=== PATIENT | female | born 1930 | race Caucasian/White ===

== ENCOUNTER → 2017-01-18 | Outpatient (CLI) | payer MEDICARE | END | disposition home or self-care (01) | LOC: PCVCIMAG 13:34 | PROVIDERS: ATTEND Internal Medicine | DX: I48.0 Paroxysmal atrial fibrillation (principal); I35.0 Nonrheumatic aortic (valve) stenosis; I12.9 Hypertensive chronic kidney disease with stage 1 through stage 4 chronic kidney disease, or unspecified chronic kidney disease; N18.9 Chronic kidney disease, unspecified; E78.5 Hyperlipidemia, unspecified; E78.00 Pure hypercholesterolemia, unspecified; I34.0 Nonrheumatic mitral (valve) insufficiency; I51.7 Cardiomegaly | CPT/HCPCS: 80061; 93005; 93306; G0463 ==

== ENCOUNTER → 2017-07-21 | Outpatient (CLI) | payer MEDICARE | END | disposition home or self-care (01) | LOC: PCVCCLINIC 14:21 | PROVIDERS: ATTEND Internal Medicine | DX: I48.0 Paroxysmal atrial fibrillation (principal); I35.0 Nonrheumatic aortic (valve) stenosis; E78.2 Mixed hyperlipidemia; E11.22 Type 2 diabetes mellitus with diabetic chronic kidney disease; I12.9 Hypertensive chronic kidney disease with stage 1 through stage 4 chronic kidney disease, or unspecified chronic kidney disease; N18.9 Chronic kidney disease, unspecified; Z79.82 Long term (current) use of aspirin; Z79.899 Other long term (current) drug therapy | CPT/HCPCS: 93005; G0463 ==

== ENCOUNTER → 2018-01-21 | Outpatient (CLI) | payer MEDICARE, BC | END | disposition home or self-care (01) | LOC: PCVCIMAG 15:38 | DX: I08.3 Combined rheumatic disorders of mitral, aortic and tricuspid valves (principal); I48.0 Paroxysmal atrial fibrillation; E78.5 Hyperlipidemia, unspecified; I12.9 Hypertensive chronic kidney disease with stage 1 through stage 4 chronic kidney disease, or unspecified chronic kidney disease; E11.22 Type 2 diabetes mellitus with diabetic chronic kidney disease; N18.9 Chronic kidney disease, unspecified; Z79.899 Other long term (current) drug therapy; Z88.8 Allergy status to other drugs, medicaments and biological substances | CPT/HCPCS: 80061; 93005; 93306; G0463 ==

== ENCOUNTER → 2018-07-26 | Outpatient (CLI) | payer MEDICARE, BC | END | disposition home or self-care (01) | LOC: PCVCCLINIC 15:38 | PROVIDERS: ATTEND Internal Medicine | DX: I35.0 Nonrheumatic aortic (valve) stenosis (principal); I48.0 Paroxysmal atrial fibrillation; E78.5 Hyperlipidemia, unspecified; I12.9 Hypertensive chronic kidney disease with stage 1 through stage 4 chronic kidney disease, or unspecified chronic kidney disease; E11.22 Type 2 diabetes mellitus with diabetic chronic kidney disease; N18.9 Chronic kidney disease, unspecified | CPT/HCPCS: 93005; G0463 ==

== ENCOUNTER → 2019-01-24 | Outpatient (CLI) | payer MEDICARE, BC ==
--- NOTE | 2019-01-24 16:42 | PCVCIMAG ---
APPROVED REPORT Study performed: 01/24/2019 14:16:15 EXAM: Comprehensive 2D, Doppler, and color-flow Echocardiogram Patient Location: Echo lab Status: routine BSA: 1.60 HR: 46 bpmBP: 130/60 mmHg Rhythm: NSR Other Information Study Quality: Adequate Risk Factors: Cardiac Risk Factors: Hyperlipidemia, HTN, DM Indications Aortic Valve Disease 2D Dimensions IVSd: 14.29 (7-11mm)LVOT Diam: 19.95 (18-24mm) LVDd: 28.39 mm PWd: 10.76 (7-11mm)Ascending Ao: 31.91 (22-36mm) LVDs: 25.31 (25-40mm) Left Atrium: 30.19 (27-40mm) Aortic Root: 24.64 mm LV Single Plane 4CH: 61.54 % Volumes Left Atrial Volume (Systole) Single Plane 4CH: 38.90 mLSingle Plane 2CH: 67.46 mL LA ESV Index: 34.00 mL/m2 Aortic Valve AoV Peak Alex.: 3.95 m/s AO Peak Gr.: 62.36 mmHgLVOT Max P.95 mmHg AO Mean Gr.: 34.69 mmHgLVOT Mean P.95 mmHg AO V2 Mean: 2.77 m/sLVOT Max V: 1.58 m/s AO V2 VTI: 88.26 cmLVOT Mean V: 1.16 m/s WHITLEY (VTI): 1.38 [id number] V1 VTI: 39.08 cm WHITLEY Vmax: 1.25 cm2 AI Vmax: 4.46 m/sSV (LVOT): 122.16 mL AI Carson: 2.49 m/s2 AI PHT: 519.94 ms Mitral Valve E/A Ratio: 0.7 MV Decel. Time: 337.91 ms MV E Max Alex.: 0.87 m/s MV A Alex.: 1.22 m/s TDI E/Lateral E': 17.40E/Medial E': 14.50 Medial E' Alex.: 0.06 m/s Lateral E' Alex.: 0.05 m/s Pulmonary Valve PV Peak Gr.: 4.65 mmHg Pulmonary Vein P Vein S: 0.49 m/sP Vein A: 0.31 m/s P Vein D: 0.29 m/sP Vein A Dur.: 100.3 msec P Vein S/D Ratio: 1.69 Left Ventricle The left ventricle is normal size. There is normal LV segmental wall motion. There is normal left ventricular wall thickness. Left ventricular systolic function is normal. The left ventricular ejection fraction is within the normal range. LVEF is 55-60%. Mild diastolic dysfunction is present (impaired relaxation pattern). Right Ventricle The right ventricle is normal size. The right ventricular systolic function is normal. Atria The left atrium size is normal. The right atrium size is normal. Aortic Valve Aortic valve leaflets are moderately calcified. Peak gradient 63mmHg; mean gradient is 35mmHg. Calculated aortic valve 1.1cm2. Mild to moderate aortic regurgitation. There is moderate aortic valvular stenosis. Mitral Valve The mitral valve is normal in structure. Trace mitral regurgitation. No evidence of mitral valve stenosis. Tricuspid Valve The tricuspid valve is normal in structure. There is no tricuspid valve regurgitation noted. Pulmonic Valve The pulmonary valve is normal in structure. There is no pulmonic valvular regurgitation. Great Vessels The aortic root is normal in size. IVC is normal in size and collapses >50% with inspiration. Pericardium There is no pericardial effusion. <Conclusion> Left ventricular systolic function is normal. There is normal LV segmental wall motion. LVEF is 55-60%. Mild diastolic dysfunction Aortic valve leaflets are moderately calcified, moderately stenotic. Peak gradient 63mmHg; mean gradient is 35mmHg. Calculated aortic valve 1.1cm2. Mild to moderate aortic regurgitation. The mitral valve is normal in structure. Trace mitral regurgitation. Pulmonary artery pressure could not be reliably ascertained. There is no pericardial effusion.
== END | disposition home or self-care (01) ==
LOC: PCVCIMAG 13:59
PROVIDERS: ATTEND Internal Medicine
DX: I35.0 Nonrheumatic aortic (valve) stenosis (principal); I12.9 Hypertensive chronic kidney disease with stage 1 through stage 4 chronic kidney disease, or unspecified chronic kidney disease; E11.22 Type 2 diabetes mellitus with diabetic chronic kidney disease; N18.9 Chronic kidney disease, unspecified; E78.5 Hyperlipidemia, unspecified; I48.0 Paroxysmal atrial fibrillation; E78.00 Pure hypercholesterolemia, unspecified
CPT/HCPCS: 36415; 80061; 93005; 93306; G0463